=== PATIENT | male | born 1990 ===

== ENCOUNTER → 2017-11-04 | Outpatient (REF) | payer OTHER ==
[2017-11-04 09:54] LABS: PROGRESSIVE MOTILITY (a) 39 % (>=32); SEMEN APPEARANCE OPAQUE (OPAQUE); SEMEN VISCOSITY LIQUID (LIQUID); SEMEN VOLUME 2.5 ml (4.0-5.0); SEMEN pH 8.5 (7.0-8.0); SPERM CONCENTRATION 22.4 M/ml (>=15.0); WBC CONCENTRATION >1 M/ml (<=1 M/ml)
[2017-11-04 09:55] LABS: % NORMAL FORMS 9 % (>=4); IMMOTILITY 39 %; NON PROGRESSIVE MOTILITY (c) 22 %; SPERM# 56.1 M/Ejac (>=39); TOTAL FUNCTIONAL 4.6 M/Ejac.; TOTAL MOTILITY 61 % (>=40)
[2017-11-04 09:57] LABS: SPERM ABNORMAL FORMS WBC'S NOTED
== END ==
LOC: M LAB REF 09:38
DX: N46.8 Other male infertility (principal)
CPT/HCPCS: 89320